=== PATIENT | female | born 1965 | race Caucasian/White ===

== ENCOUNTER → 2017-06-29 | Emergency (ER) | payer OTHER ==
[~2017-06-29] VITALS: Ht 149.9 cm; Wt 59.0 kg
[~2017-06-29] MED LIST: VASOTEC2.5 MG
== END | disposition home or self-care (01) ==
LOC: ER 15:19
DX: S80.01XA Contusion of right knee, initial encounter (principal); W18.39XA Other fall on same level, initial encounter; Y93.89 Activity, other specified; Y92.481 Parking lot as the place of occurrence of the external cause; Y99.8 Other external cause status

== ENCOUNTER 2019-11-14 07:30 | Outpatient (CLI) | payer OTHER | END 2019-11-14 08:50 | disposition home or self-care (01) | LOC: NUCLEAR 07:30 | DX: E05.80 Other thyrotoxicosis without thyrotoxic crisis or storm (principal) | CPT/HCPCS: 78012; A9531 ==

== ENCOUNTER 2019-11-15 08:42 | Outpatient (CLI) | payer OTHER | END 2019-11-15 09:12 | disposition home or self-care (01) | LOC: NUCLEAR 08:42 | DX: E05.80 Other thyrotoxicosis without thyrotoxic crisis or storm (principal) | CPT/HCPCS: 78013; A9512 ==

== ENCOUNTER 2020-01-13 11:06 | Outpatient (CLI) | payer OTHER | END 2020-01-13 11:26 | disposition home or self-care (01) | LOC: NUCLEAR 11:06 | PROVIDERS: ATTEND Internal Medicine Sports Medicine | DX: E05.90 Thyrotoxicosis, unspecified without thyrotoxic crisis or storm (principal); E04.1 Nontoxic single thyroid nodule | CPT/HCPCS: 79005; A9517 ==